=== PATIENT | female | born 1955 | race Caucasian/White ===

== ENCOUNTER 2021-03-07 23:06 | Inpatient (IN) ==
[2021-03-08] MEDS ORDERED: Naloxone 0.4 MG/ML INJ IVP PRN (01:56)
[2021-03-08] MEDS: Ipratropium/Albuterol Neb 3 ML IH SCH ×4 (04:20→22:17)
[2021-03-08] MEDS: *HR* Enoxaparin 40 MG/0.4 ML SYRINGE SQ SCH (05:36)
[2021-03-08] MEDS: methylPREDNISolone 125 MG/2 ML VIAL IVP SCH ×2 (07:48→16:19)
[2021-03-08] MEDS: Lisinopril-HCTZ 20-12.5mg TABLET PO SCH (07:48)
[2021-03-08 08:05] LABS: BUN/Creatinine Ratio 17 (6-26); Blood Urea Nitrogen 10 mg/dL (8-23); Calcium 9.1 mg/dL (8.6-10.3); Carbon Dioxide 27 mEq/L (23-29); Chloride 98 mEq/L (98-107); Glucose 230 mg/dL (70-105); Osmolality,Calculated 282 (280-300); Potassium 3.9 mEq/L (3.5-5.1); Sodium 133 mEq/L (136-145); eGFR For African Americans > 60 (> 60); eGFR For Non-African Americans > 60 (> 60)
[2021-03-08 08:08] LABS: Basophils % 0.4 %; Eosinophils % 0.1 %; Immature Granulocytes % 0.7 % (0-4); Red Cell Distribution Width 13.4 % (11.5-14.5)
[2021-03-08 08:10] LABS: Hematocrit 48.9 % (35.3-44.9); Hemoglobin 15.9 g/dL (11.5-15.4); Immature Platelets 3.5 % (1.1-6.1); Lymphocytes # 0.7 K/mcL (0.6-4.6); Lymphocytes % 10.9 %; Mean Corpuscular HGB Conc 32.5 g/dL (31.6-35.5); Mean Corpuscular Hemoglobin 30.1 pg (28.0-33.3); Mean Corpuscular Volume 92.4 fL (83.0-100.0); Mean Platelet Volume 9.9 fL (9.4-12.4); Monocytes # 0.3 K/mcL (0.0-1.3); Neutrophils # 5.6 K/mcL (1.6-8.9); Platelet Count 254 K/mcL (140-400); Red Blood Count 5.29 M/mcL (3.82-4.97); Segmented Neutrophils % 83.9 %; White Blood Count 6.7 K/mcL (4.3-11.1)
[2021-03-08] MEDS ORDERED: levoFLOXacin 750 MG/150 ML 750 MG/150 ML BAG IVPB SCH (09:00)
[2021-03-08] MEDS ORDERED: levoFLOXacin 500 MG/100 ML 500 MG/100 ML BAG IVPB SCH (09:00)
[2021-03-08] MEDS: Nicotine 21 MG PATCH.TD24 TD SCH (09:37)
[2021-03-08] MEDS ORDERED: Dextrose Gel 15 GM/37.5 ML TUBE PO PRN ×2 (13:25)
[2021-03-08] MEDS ORDERED: *HR* Dextrose 50 % in Water (Vial) 50 ML VIAL IVP PRN (13:25)
[2021-03-08] MEDS ORDERED: D5% in Water 1,000 ML IVC PRN (13:25)
[2021-03-08] MEDS ORDERED: Azithromycin 500 MG in 0.9 % Sodium Chloride 250 ML IVPB SCH (14:00)
[2021-03-08 16:05] LABS: Adenovirus Not Detected (Not Detect); Coronavirus 229E Not Detected (Not Detect); Coronavirus HKU1 Not Detected (Not Detect); Coronavirus NL63 Not Detected (Not Detect); Coronavirus OC43 Not Detected (Not Detect); Human Metapneumovirus Not Detected (Not Detect); Human Rhinovirus/Enterovirus DETECTED (Not Detect); Influenza A Subtype 2009 H1 Not Detected (Not Detect); Influenza B Not Detected (Not Detect); Parainfluenza Virus 1 Not Detected (Not Detect); Parainfluenza Virus 2 Not Detected (Not Detect); Parainfluenza Virus 3 Not Detected (Not Detect); Parainfluenza Virus 4 Not Detected (Not Detect); SARS-CoV-2 Not Detected (Not Detect)
[2021-03-08 16:06] LABS: Bordetella Pertussis Not Detected (Not Detect); Chlamydophila pneumoniae Not Detected (Not Detect); Mycoplasma pneumoniae Not Detected (Not Detect); Respiratory Syncytial Virus Not Detected (Not Detect)
[2021-03-08] MEDS: Insulin LISPRO 300 UNITS/3 ML VIAL SUBQ SCH ×2 (16:22→21:32)
[2021-03-09] MEDS: methylPREDNISolone 125 MG/2 ML VIAL IVP SCH ×3 (00:30→19:03)
[2021-03-09 02:25] LABS: Hemoglobin 15.6 g/dL (11.5-15.4); Mean Corpuscular HGB Conc 32.5 g/dL (31.6-35.5); Mean Corpuscular Hemoglobin 30.2 pg (28.0-33.3); Mean Corpuscular Volume 92.8 fL (83.0-100.0); Platelet Count 277 K/mcL (140-400); Red Blood Count 5.17 M/mcL (3.82-4.97); Red Cell Distribution Width 13.2 % (11.5-14.5)
[2021-03-09 02:42] LABS: Alanine Aminotransferase 24 Units/L (7-52); Albumin 4.3 g/dL (3.5-5.7); Albumin/Globulin Ratio 1.6 (1.1-2.2); Alkaline Phosphatase 50 Units/L (34-104); Aspartate Amino Transferase 17 Units/L (13-39); BUN/Creatinine Ratio 30 (6-26); Bilirubin,Total 0.5 mg/dL (0.3-1.0); Blood Urea Nitrogen 21 mg/dL (8-23); Calcium 9.5 mg/dL (8.6-10.3); Carbon Dioxide 27 mEq/L (23-29); Chloride 98 mEq/L (98-107); Globulin 2.7 g/dL (2.4-3.5); Glucose 221 mg/dL (70-105); Osmolality,Calculated 288 (280-300); Potassium 3.8 mEq/L (3.5-5.1); Sodium 134 mEq/L (136-145); eGFR For African Americans > 60 (> 60); eGFR For Non-African Americans > 60 (> 60)
[2021-03-09 03:10] LABS: Estimated Average Glucose 157 mg/dl; Hemoglobin A1C 7.1 %
[2021-03-09] MEDS: Ipratropium/Albuterol Neb 3 ML IH SCH ×4 (03:57→22:04)
[2021-03-09] MEDS: *HR* Enoxaparin 40 MG/0.4 ML SYRINGE SQ SCH (05:20)
[2021-03-09] MEDS: Insulin LISPRO 300 UNITS/3 ML VIAL SUBQ SCH ×4 (08:51→20:16)
[2021-03-09] MEDS: Nicotine 21 MG PATCH.TD24 TD SCH (08:55)
[2021-03-09] MEDS: levoFLOXacin 500 MG/100 ML 500 MG/100 ML BAG IVPB SCH (08:55)
[2021-03-09] MEDS: Lisinopril-HCTZ 20-12.5mg TABLET PO SCH (08:56)
[2021-03-09] MEDS: MethylPREDNISolone 40 MG/ML VIAL IVP SCH (20:16)
[2021-03-10] MEDS: Ipratropium/Albuterol Neb 3 ML IH SCH ×4 (03:42→21:59)
[2021-03-10] MEDS: *HR* Enoxaparin 40 MG/0.4 ML SYRINGE SQ SCH (04:57)
[2021-03-10 06:00] LABS: Hematocrit 48.6 % (35.3-44.9); Hemoglobin 15.9 g/dL (11.5-15.4); Mean Corpuscular HGB Conc 32.7 g/dL (31.6-35.5); Mean Corpuscular Hemoglobin 30.5 pg (28.0-33.3); Mean Corpuscular Volume 93.3 fL (83.0-100.0); Mean Platelet Volume 9.9 fL (9.4-12.4); Platelet Count 330 K/mcL (140-400); Red Blood Count 5.21 M/mcL (3.82-4.97); Red Cell Distribution Width 13.6 % (11.5-14.5); White Blood Count 18.8 K/mcL (4.3-11.1)
[2021-03-10 06:19] LABS: Alanine Aminotransferase 24 Units/L (7-52); Albumin 4.2 g/dL (3.5-5.7); Albumin/Globulin Ratio 1.6 (1.1-2.2); Alkaline Phosphatase 47 Units/L (34-104); Aspartate Amino Transferase 16 Units/L (13-39); BUN/Creatinine Ratio 33 (6-26); Bilirubin,Total 0.4 mg/dL (0.3-1.0); Blood Urea Nitrogen 23 mg/dL (8-23); Calcium 9.3 mg/dL (8.6-10.3); Carbon Dioxide 28 mEq/L (23-29); Chloride 98 mEq/L (98-107); Globulin 2.6 g/dL (2.4-3.5); Glucose 262 mg/dL (70-105); Osmolality,Calculated 293 (280-300); Potassium 3.9 mEq/L (3.5-5.1); Sodium 135 mEq/L (136-145); Total Protein 6.8 g/dL (6.4-8.9); eGFR For African Americans > 60 (> 60); eGFR For Non-African Americans > 60 (> 60)
[2021-03-10] MEDS: Insulin LISPRO 300 UNITS/3 ML VIAL SUBQ SCH ×4 (08:27→19:47)
[2021-03-10] MEDS: Nicotine 21 MG PATCH.TD24 TD SCH (08:28)
[2021-03-10] MEDS: MethylPREDNISolone 40 MG/ML VIAL IVP SCH ×2 (08:28→19:47)
[2021-03-10] MEDS: Lisinopril-HCTZ 20-12.5mg TABLET PO SCH (08:29)
[2021-03-10] MEDS: levoFLOXacin 500 MG/100 ML 500 MG/100 ML BAG IVPB SCH (08:30)
[2021-03-11] MEDS: Ipratropium/Albuterol Neb 3 ML IH SCH ×2 (03:41→10:32)
[2021-03-11] MEDS: *HR* Enoxaparin 40 MG/0.4 ML SYRINGE SQ SCH (05:42)
[2021-03-11 06:13] LABS: Hematocrit 47.3 % (35.3-44.9); Hemoglobin 15.3 g/dL (11.5-15.4); Mean Corpuscular HGB Conc 32.3 g/dL (31.6-35.5); Mean Corpuscular Hemoglobin 29.7 pg (28.0-33.3); Mean Corpuscular Volume 91.7 fL (83.0-100.0); Mean Platelet Volume 10.1 fL (9.4-12.4); Platelet Count 324 K/mcL (140-400); Red Blood Count 5.16 M/mcL (3.82-4.97); Red Cell Distribution Width 13.4 % (11.5-14.5); White Blood Count 13.6 K/mcL (4.3-11.1)
[2021-03-11 06:28] LABS: Alanine Aminotransferase 26 Units/L (7-52); Albumin 4.1 g/dL (3.5-5.7); Albumin/Globulin Ratio 1.5 (1.1-2.2); Alkaline Phosphatase 48 Units/L (34-104); Aspartate Amino Transferase 15 Units/L (13-39); BUN/Creatinine Ratio 34 (6-26); Bilirubin,Total 0.5 mg/dL (0.3-1.0); Blood Urea Nitrogen 23 mg/dL (8-23); Calcium 9.2 mg/dL (8.6-10.3); Carbon Dioxide 31 mEq/L (23-29); Chloride 98 mEq/L (98-107); Globulin 2.7 g/dL (2.4-3.5); Glucose 300 mg/dL (70-105); Osmolality,Calculated 297 (280-300); Potassium 4.1 mEq/L (3.5-5.1); Sodium 136 mEq/L (136-145); Total Protein 6.8 g/dL (6.4-8.9); eGFR For African Americans > 60 (> 60); eGFR For Non-African Americans > 60 (> 60)
[2021-03-11 06:49] VITALS: BP 147/80
[2021-03-11] MEDS: levoFLOXacin 500 MG/100 ML 500 MG/100 ML BAG IVPB SCH (07:58)
[2021-03-11] MEDS: Insulin LISPRO 300 UNITS/3 ML VIAL SUBQ SCH ×2 (07:59→11:52)
[2021-03-11] MEDS: MethylPREDNISolone 40 MG/ML VIAL IVP SCH (07:59)
[2021-03-11] MEDS: Nicotine 21 MG PATCH.TD24 TD SCH (07:59)
[2021-03-11] MEDS: Lisinopril-HCTZ 20-12.5mg TABLET PO SCH (08:00)
[2021-03-11] MEDS ORDERED: Acetaminophen 325 MG TABLET PO PRN (09:11)
== END 2021-03-11 15:26 | disposition home or self-care (01) | DRG 190 ==
LOC: 3BNU → SUATTDRO 03-08 01:01
PROVIDERS: ADMIT Internal Medicine; ATTEND Registered Nurse